=== PATIENT | male | born 1960 | race Two or more races ===

== ENCOUNTER 2022-07-07 11:29 | Outpatient (CLI) | payer OTHER | END 2022-07-07 23:59 | disposition home or self-care (01) | LOC: RAD 11:29 | PROVIDERS: ATTEND Chiropractor | DX: M17.12 Unilateral primary osteoarthritis, left knee (principal); M25.762 Osteophyte, left knee; M25.462 Effusion, left knee | CPT/HCPCS: 73564 ==

== ENCOUNTER 2022-08-18 14:16 | Outpatient (CLI) | payer OTHER | END 2022-08-18 23:59 | disposition home or self-care (01) | LOC: LAB 14:16 | PROVIDERS: ATTEND Chiropractor | DX: M17.12 Unilateral primary osteoarthritis, left knee (principal) | CPT/HCPCS: 73590 ==